=== PATIENT | female | born 1985 | race Caucasian/White ===

== ENCOUNTER 2023-01-04 09:03 | Emergency (ER) | payer SELFPAY ==
[2023-01-04 10:13] LABS: ANION GAP 8.9 mmol/L (5.0-14.0); CALCIUM 9.2 mg/dL (8.5-10.1); EST CRCL DRUG DOSING (CG) 76.36 mL/min; POTASSIUM,K 3.8 mmol/L (3.6-5.2)
== END 2023-01-04 10:31 | disposition home or self-care (01) ==
LOC: JP.ED 09:03
DX: F11.10 Opioid abuse, uncomplicated (principal); F17.210 Nicotine dependence, cigarettes, uncomplicated
CPT/HCPCS: 36415; 80048; 99284